=== PATIENT | female | born 1950 | race Asian ===

== ENCOUNTER → 2018-11-30 | Day surgery (SDC) | payer MEDICARE ==
[2018-11-25 11:37] LABS: BASOPHILS % 0.3 % (0.0-1.0); EOSINOPHILS # (AUTO) 0.1 (0.0-0.4); EOSINOPHILS % 0.7 % (0.0-6.0); HEMATOCRIT 41.4 % (34.2-44.1); HEMOGLOBIN 13.7 g/dL (12.0-16.0); LYMPHOCYTES % 26.3 % (18.0-39.1); MEAN CORPUSCULAR HEMOGLOBIN 30.4 pg (28-32); MEAN CORPUSCULAR HGB CONC 33.1 g/dL (31-35); MONOCYTES # (AUTO) 0.6 (0.2-0.8); MONOCYTES % 7.9 % (4.4-11.3); NEUTROPHILS # (AUTO) 4.8 (2.1-6.9); NEUTROPHILS % 64.5 % (38.7-80.0); PLATELET COUNT 225 x10e3/uL (140-360)
--- NOTE | 2018-11-25 13:36 | Diagnostic Imaging Report ---
EXAMINATION: CHEST 2 VIEWS INDICATION: Pre-operative COMPARISON: None FINDINGS: LINES/TUBES:None LUNGS:The lungs are well-inflated. No focal consolidation or pulmonary edema. PLEURA:No pleural effusion or pneumothorax. MEDIASTINUM:The cardiomediastinal silhouette appears normal in size and shape. BONES/SOFT TISSUES:No acute osseous injury. ABDOMEN:No free air under the diaphragm. IMPRESSION: No focal pneumonia or pulmonary edema. Signed by: Nichelle Mcfadden MD on 11/25/2018 1:33 PM
[~2018-11-30] MED LIST: ACETAMINOPHEN/CODEINE 300MG - 30MG TAB ONE; AMLODIPINE BESYL5 MG PO; ATORVASTATIN CA20 MG PO; BACITRACIN 50,000 UNIT VIAL ONE; BUPIVACAINE HCL 0.5% INJ 30 ML VIAL INJ ONE; CEFAZOLIN SOD 1 GM/NS 50ML 100 ML IV ONE; DEXAMETHASONE SOD PHOS INJ 4 MG/ML VIAL ONE; FENTANYL CITRATE/PF 100MCG/2 ML INJ ONE; LIDOCAINE HCL 2% LOCAL INJ 5 ML SDV VIAL INJ ONE; LISINOPRIL10 MG PO; NEXIUM40 MG PO; ONDANSETRON HCL INJ 2MG/ML 2ML 2 MG/ML VIAL ONE; PROPOFOL IV EMULSION 10 MG/ML 20 ML VIAL ONE; SEVOFLURANE INHAL SOLN 250 ML PEN BTL ONE
--- OUTSIDE RECORDS SUMMARY | 2018-11-30 08:38 | XMS REPORT ---
Author [facility] Address Unknown Phone Unavailable Care Team Providers Care Special Inspector Name Role Phone JAVID SMITH Unavailable Unavailable Problems This patient has no known problems. Allergies, Adverse Reactions, Alerts This patient has no known allergies or adverse reactions. Medications This patient has no known medications. Results Test Description Test Time Test Comments Text Results Atomic Results Result Comments CHEST 2 VIEWS 2018-11-25 13:32:00 [place] [address] Patient Name: DEBORAH ALEXANDER MR #: [id number] : 1950 Age/Sex: 68/F Req #: [id number] Adm Physician: Ordered by: JAVID SMITH MD Report #: [id number] Location: OR Room/Bed: Procedure: [id number] DX/CHEST 2 VIEWS Exam Date: 11/25/18 Exam Time: 1130 REPORT STATUS: Signed EXAMINATION: CHEST 2 VIEWS INDICATION: Pre-operative COMPARISON: None FINDINGS: LINES/TUBES:None LUNGS:The lungs are well-inflated. No focal consolidation or pulmonary edema. PLEURA:No pleural effusion or pneumothorax. MEDIASTINUM:The cardiomediastinal silhouette appears normal in size and shape. BONES/SOFT TISSUES:No acute osseous injury. ABDOMEN:No free air under the diaphragm. IMPRESSION: No focal pneumonia or pulmonary edema. Signed by: Demetri Greco MD on 11/25/2018 1:33 PM Dictated By: DEMETRI GRECO MD [id number] Transcribed By: BAYRON GOMEZ on 11/25/18 1333 COPY TO: JAVID SMITH MD
[2018-11-30 14:15] VITALS: BP 140/79
--- NOTE | 2018-12-09 16:09 | Operative Report ---
DATE OF PROCEDURE: 11/30/2018 SURGEON: Jose Walker MD PREOPERATIVE DIAGNOSIS: Displaced distal radius fracture. POSTOPERATIVE DIAGNOSIS: Displaced distal radius fracture. OPERATION/PROCEDURE PERFORMED: 1. The patient underwent attempted a closed reduction of the right distal radius fracture followed by open reduction and percutaneous pinning of a displaced right distal radius fracture. 2. Allograft bone grafting of the right distal radius fracture. ROAD TESTER: Brooke Cain. ANESTHESIA: General endotracheal intubation anesthesia. IV FLUIDS: As per the anesthesia record. BRIEF DESCRIPTION OF PATIENT'S OPERATIVE PROCEDURE: Ms. Negron was taken to the operating room, placed in supine position on the operating room table. Following induction of general anesthesia as well as endotracheal intubation, the patient's right upper extremity was examined under anesthesia. She was found to have a bruise and ecchymosis involving the right wrist joint. Fluoroscopic evaluation of the right wrist demonstrated a displaced distal radius fracture. Attempts were made to reduce the patient's wrist fracture in a closed fashion. This failed to realign the wrist. The patient's upper extremity was prepped and draped in surgical fashion. An incision was created over the dorsum of the wrist. This incision was deepened to the level of the extensor retinaculum. The 4th dorsal wrist spur was identified and opened. The 4th dorsal wrist compartment was identified and opened. The fracture site was identified. A [place] was placed in the fracture site. The fracture was carefully manipulated, reestablishing the length and alignment of the distal radius. Two pins were then inserted from distal to proximal capturing the distal radius fracture in its reduced position. The position of those pins as well as reduction of the fracture site was assessed using fluoroscopy and found to be acceptable. The wound was copiously irrigated. Allograft bone graft was then used to supplement fracture healing and to fill the defect created by the patient's fracture. The 4th dorsal wrist compartment was then loosely reapproximated. The remaining soft tissues were closed in a multilayer fashion. Sterile dressings were applied as well as a well-padded sugar-tong splint. The patient was then awakened and taken to postanesthesia care in stable condition. Jose Walker MD EBR/MODL /[id number]
== END | disposition home or self-care (01) ==
LOC: OR 08:36
PROVIDERS: ATTEND Specialist
DX: S52.531A Colles' fracture of right radius, initial encounter for closed fracture (principal); W01.0XXA Fall on same level from slipping, tripping and stumbling without subsequent striking against object, initial encounter; I10 Essential (primary) hypertension; E78.00 Pure hypercholesterolemia, unspecified; I45.10 Unspecified right bundle-branch block; Z01.810 Encounter for preprocedural cardiovascular examination; Z01.812 Encounter for preprocedural laboratory examination; Z01.818 Encounter for other preprocedural examination
CPT/HCPCS: 25607; 36415; 71046; 76000; 85025; 93005; C1713 ×3; J0690; J1100; J2001; J2405; J2704; J3010